=== PATIENT | male | born 1995 | race Caucasian/White ===

== ENCOUNTER 2017-05-23 15:29 | Inpatient (IN) | payer OTHER ==
[2017-05-23] MEDS ORDERED: KETOROLAC 30 MG/ML 1 ML VIAL IVP STA (15:48)
[2017-05-23] MEDS ORDERED: SODIUM CHLORIDE 0.9% 1,000 ML IV STA (15:48)
--- NOTE | 2017-05-23 15:59 | ED ---
General Adult HPI - General Source: patient, family, RN notes reviewed Mode of arrival: wheelchair Limitations: no limitations <Elver Villagomez - Last Filed: 05/23/17 19:05> <Genaro Carrasco - Last Filed: 05/23/17 19:42> - General Chief complaint: Extremity Injury, Lower Stated complaint: Ankle Pain /Swelling Time Seen by Provider: 05/23/17 15:40 - History of Present Illness Initial comments: Patient 21-year-old male significant past history for ulcer colitis, who presents emergency room today with chief complaint of bilateral lower leg pain and swelling. He does admit that over the last few days his noticed increased pain to his both right and left calf. He states that it did wake him up sleeping. Patient has mid that his noticed some swelling today worse on the left than the right. Patient also admits some redness on the left side. He denies any injuries or trauma. He states never had some symptoms in the past. Patient states is very tender with ambulation. States not used anything for pain. Denies any other complaints or symptoms. Patient denies any recent fever , chills, shortness of breath, chest pain, back pain, abdominal pain, nausea or vomiting, numbness or tingling, dysuria or hematuria, constipation or diarrhea, headaches or visual changes, or any other complaints. (Elver Villagomez) - Related Data Home Medications Medication Instructions Recorded Confirmed EPINEPHrine (Auto Inject) [Epipen] 0.3 mg IM ONCE PRN 05/23/17 05/23/17 Mesalamine [Canasa] 1,000 mg RECTAL HS 05/23/17 05/23/17 Mesalamine [Lialda] 2.4 gm PO QAM 05/23/17 05/23/17 Allergies Allergy/AdvReac Type Severity Reaction Status Date / Time Sulfa (Sulfonamide Allergy Anaphylaxis Verified 05/23/17 19:35 Antibiotics) venom-honey bee Allergy Anaphylaxis Verified 05/23/17 19:35 Review of Systems ROS Other: All systems not noted in ROS Statement are negative. <Elver Villagomez - Last Filed: 05/23/17 19:05> ROS Other: All systems not noted in ROS Statement are negative. <Genaro Carrasco - Last Filed: 05/23/17 19:42> ROS Statement: Those systems with pertinent positive or pertinent negative responses have been documented in the HPI. Past Medical History Additional Past Medical History / Comment(s): ulcertive colitis History of Any Multi-Drug Resistant Organisms: None Reported Past Surgical History: Ear Surgery Past Psychological History: No Psychological Hx Reported Smoking Status: Never smoker Past Alcohol Use History: None Reported Past Drug Use History: None Reported <Elver Villagomez - Last Filed: 05/23/17 19:05> General Exam Limitations: no limitations <Elver Villagomez - Last Filed: 05/23/17 19:05> <Genaro Carrasco - Last Filed: 05/23/17 19:42> - General Exam Comments Initial Comments: General: The patient is awake and alert, in no distress, and does not appear acutely ill. Neck: The neck is supple, there is no tenderness or JVD. Cardiovascular: There is a regular rate and rhythm. No murmur, rub or gallop is appreciated. Respiratory: Lungs are clear to auscultation, respirations are non-labored, breath sounds are equal. No wheezes, stridor, rales, or rhonchi. Musculoskeletal: moderate swelling to both the left and right ankles. He shows limited range of motion with plantar and dorsiflexion due to pain. Locally tender over the joints bilaterally. No tenderness down into the foot. No tenderness to left or right knee. Cap refill less than 2 seconds. Sensations are intact with pulses equal bilateral 2+. Neurological: A&O x 3. CN II-XII intact, There are no obvious motor or sensory deficits. Coordination appears grossly intact. Speech is normal. Skin: he does have some moderate swelling of the ankles bilaterally. There is increased redness to the lateral aspect of the left ankle and anterior aspect of the left foot. Psychiatric: Normal mood and affect. (Elver Villagomez) Course <Elver Villagomez - Last Filed: 05/23/17 19:05> <Genaro Carrasco - Last Filed: 05/23/17 19:42> Vital Signs 05/23/17 05/23/17 05/23/17 15:30 17:35 19:19 Temperature 97.8 F 100.0 F H 99.4 F Pulse Rate 118 H 99 89 Respiratory 16 18 18 Rate Blood Pressure 143/77 114/57 137/60 O2 Sat by Pulse 100 99 96 Oximetry - Reevaluation(s) Reevaluation #1: 05/23/17 19:41 I did personally evaluate the patient with a [id number] evaluation and did discuss findings with the patient and his parents. Also discuss case with Dr. Moffett. Patient will be admitted CT abdomen pelvis will be performed consultation by Dr. Lawrence. (Genaro Carrasco) Medical Decision Making - Lab Data Result diagrams: 05/23/17 16:09 05/23/17 16:09 <Elver Villagomez - Last Filed: 05/23/17 19:05> - Lab Data Result diagrams: 05/23/17 16:09 05/23/17 16:09 <Genaro Carrasco - Last Filed: 05/23/17 19:42> - Lab Data Lab Results 05/23/17 05/23/17 05/23/17 Range/Units 16:09 16:09 16:09 WBC 18.4 H (3.8-10.6) k/uL RBC 4.17 L (4.30-5.90) m/uL Hgb 13.7 (13.0-17.5) gm/dL Hct 38.7 L (39.0-53.0) % MCV 92.8 (80.0-100.0) fL MCH 32.8 (25.0-35.0) pg MCHC 35.3 (31.0-37.0) g/dL RDW 13.8 (11.5-15.5) % Plt Count 466 H (150-450) k/uL Neutrophils % 83 % Lymphocytes % 7 % Monocytes % 4 % Eosinophils % 4 % Basophils % 0 % Neutrophils # 15.3 H (1.3-7.7) k/uL Lymphocytes # 1.3 (1.0-4.8) k/uL Monocytes # 0.7 (0-1.0) k/uL Eosinophils # 0.8 H (0-0.7) k/uL Basophils # 0.1 (0-0.2) k/uL Poikilocytosis Slight ESR 45 H (0-15) mm/hr Sodium 133 L (137-145) mmol/L Potassium 4.1 (3.5-5.1) mmol/L Chloride 99 (98-107) mmol/L Carbon Dioxide 23 (22-30) mmol/L Anion Gap 11 mmol/L BUN 9 (9-20) mg/dL Creatinine 0.90 (0.66-1.25) mg/dL Est GFR (MDRD) Af Amer >60 (>60 ml/min/1.73 sqM) Est GFR (MDRD) Non-Af >60 (>60 ml/min/1.73 sqM) Glucose 84 (74-99) mg/dL Uric Acid 3.5 (3.5-8.5) mg/dL Calcium 8.8 (8.4-10.2) mg/dL Magnesium 1.9 (1.6-2.3) mg/dL Total Bilirubin 0.9 (0.2-1.3) mg/dL AST 26 (17-59) U/L ALT 38 (21-72) U/L Alkaline Phosphatase 105 (38-126) U/L C-Reactive Protein 88.8 H (<10.0) mg/L Total Protein 6.7 (6.3-8.2) g/dL Albumin 3.6 (3.5-5.0) g/dL Disposition Time of Disposition: 19:22 <Elver Villagomez - Last Filed: 05/23/17 19:05> <Genaro Carrasco - Last Filed: 05/23/17 19:42> Clinical Impression: Cellulitis Disposition: ADMITTED IP TO THIS HOSP Condition: Stable
[2017-05-23 16:30] LABS: Basophils # (A) 0.1 k/uL (0-0.2); Basophils % (A) 0 %; CH 32.9; CHCM 35.6; Eosinophils # (A) 0.8 k/uL (0-0.7); Eosinophils % (A) 4 %; HCT 38.7 % (39.0-53.0); HDW 3.51; HGB 13.7 gm/dL (13.0-17.5); Luc # (Auto) 0.28; Luc % (Auto) 2; Lymphocytes # (A) 1.3 k/uL (1.0-4.8); Lymphocytes % (A) 7 %; MCH 32.8 pg (25.0-35.0); MCHC 35.3 g/dL (31.0-37.0); MCV 92.8 fL (80.0-100.0); Mean Platelet Volume 6.2; Monocytes # (A) 0.7 k/uL (0-1.0); Monocytes % (A) 4 %; Neutrophils # (A) 15.3 k/uL (1.3-7.7); Neutrophils % (A) 83 %; Poikilocytosis Slight; RBC 4.17 m/uL (4.30-5.90); RDW 13.8 % (11.5-15.5); WBC 18.4 k/uL (3.8-10.6); WBC (Perox) 18.55
[2017-05-23 16:43] LABS: ALT 38 U/L (21-72); AST 26 U/L (17-59); Alkaline Phosphatase 105 U/L (38-126); Anion Gap 11 mmol/L; Blood Urea Nitrogen 9 mg/dL (9-20); C Reactive Protein 88.8 mg/L (<10.0); Calcium 8.8 mg/dL (8.4-10.2); Carbon Dioxide 23 mmol/L (22-30); Chloride 99 mmol/L (98-107); Glucose 84 mg/dL (74-99); Magnesium 1.9 mg/dL (1.6-2.3); Non-African American GFR(MDRD) >60 (>60 ml/min/1.73 sqM); Potassium 4.1 mmol/L (3.5-5.1); Sodium 133 mmol/L (137-145); Total Bilirubin 0.9 mg/dL (0.2-1.3); Total Protein 6.7 g/dL (6.3-8.2); Uric Acid 3.5 mg/dL (3.5-8.5)
--- NOTE | 2017-05-23 17:31 | US ---
EXAMINATION TYPE: US venous doppler duplex LE BI DATE OF EXAM: 05/23/2017 5:25 PM COMPARISON: NONE CLINICAL HISTORY: Pain. Bilateral feet swelling SIDE PERFORMED: Bilateral TECHNIQUE: The lower extremity deep venous system is examined utilizing real time linear array sonog hilda with graded compression, doppler sonography and color-flow sonography. VESSELS IMAGED: External Iliac Vein (EIV) Common Femoral Vein Deep Femoral Vein Greater Saphenous Vein * Femoral Vein Popliteal Vein Small Saphenous Vein * Proximal Calf Veins (* superficial vessels) Right Leg: Appears negative for DVT Left Leg: Appears negative for DVT Grayscale, color doppler, spectral doppler imaging performed of the deep veins of the lower extremiti es. There is normal flow, compressibility, vascular waveforms IMPRESSION: No evidence of acute DVT in either lower extremity.
[2017-05-23] MEDS ORDERED: ACETAMINOPHEN IV (For NPO) 1,000 MG in SALINE 100 100ML.BAG IVPB STA (17:46)
[2017-05-23] MEDS ORDERED: PIPERACILLIN-TAZOBACTAM 3.375 GM in DEXTROSE/WATER 1 50ML.BAG IVPB STA (17:52)
[2017-05-23] MEDS ORDERED: NALOXONE 0.4 MG/ML 1 ML VIAL IV PRN (19:19)
[2017-05-23] MEDS ORDERED: HYDROmorphone 1 MG/ML 1 ML SYRINGE IV PRN (19:19)
[2017-05-23] MEDS ORDERED: RX INFO: IV CONTRAST WAS GIVEN 1 EACH MISC MISCELLANE PRN (19:19)
[2017-05-23] MEDS: IOHEXOL 350 MG/ML 25 ML BOTTLE (ORAL USE) PO PRN ×2 (19:58→21:11)
--- NOTE | 2017-05-23 22:09 | CT ---
EXAMINATION TYPE: CT abdomen pelvis w con DATE OF EXAM: 05/23/2017 COMPARISON: NONE HISTORY: patient complains of bilateral lower leg swelling. Patient has history of ulcerative coliti s. CT DLP: 388.1 mGycm, Automated Exposure Control for Dose Reduction was Utilized. CONTRAST: CT scan of the abdomen and pelvis is performed with oral and with IV Contrast, patient injected with 100 mL of Omnipaque 300. FINDINGS: LUNG BASES: No significant abnormality is appreciated. LIVER/GB: No significant abnormality is appreciated. PANCREAS: No significant abnormality is seen. SPLEEN: No significant abnormality is seen. ADRENALS: No significant abnormality is seen. KIDNEYS: No significant abnormality is seen. BOWEL: Oral contrast reaches level of the mid transverse colon making evaluation of distal bowel slig htly suboptimal. Patient also has very little intra-abdominal fat making evaluation suboptimal. There is air-fluid level in rectum. There is mild to moderate wall thickening in the left colon with perha ps mild wall thickening in the sigmoid colon. PROSTATE/SEMINAL VESICLES: No gross abnormality seen. LYMPH NODES: No greater than 1cm abdominal or pelvic lymph nodes are appreciated. OSSEOUS STRUCTURES: No significant abnormality is seen. OTHER: No significant additional abnormality is seen. IMPRESSION: Suspect left-sided acute colitis as detailed above, differential includes infectious and inflammatory etiologies including active ulcerative colitis. Clinical correlation advised.
[2017-05-23] MEDS: ACETAMINOPHEN TAB 325 MG TAB PO PRN (22:49)
[2017-05-23] MEDS: PIPERACILLIN-TAZOBACTAM 3.375 GM in DEXTROSE/WATER 1 50ML.BAG IVPB SCH (22:50)
[2017-05-24 02:51] LABS: Appearance,Urine Clear (Clear); Bilirubin,Urine Negative (Negative); Glucose,Urine (UA) Negative (Negative); Ketones,Urine 1+ (Negative); Leukocyte Esterase,Urine Negative (Negative); Nitrite,Urine Negative (Negative); PH, Urine 6.5 (5.0-8.0); Protein,Urine Trace (Negative); Specific Gravity,Urine 1.021 (1.001-1.035); UA Billing (MACRO vs. MICRO) CHEM; Urobilinogen,Urine <2.0 mg/dL (<2.0)
[2017-05-24] MEDS: ACETAMINOPHEN TAB 325 MG TAB PO PRN ×4 (03:51→21:53)
[2017-05-24] MEDS: KETOROLAC 30 MG/ML 1 ML VIAL IVP PRN ×4 (03:56→21:52)
[2017-05-24 07:32] LABS: ALT 46 U/L (21-72); AST 29 U/L (17-59); Alkaline Phosphatase 101 U/L (38-126); Anion Gap 10 mmol/L; Blood Urea Nitrogen 10 mg/dL (9-20); Calcium 8.8 mg/dL (8.4-10.2); Carbon Dioxide 27 mmol/L (22-30); Chloride 98 mmol/L (98-107); Glucose 93 mg/dL (74-99); Non-African American GFR(MDRD) >60 (>60 ml/min/1.73 sqM); Potassium 4.8 mmol/L (3.5-5.1); Sodium 135 mmol/L (137-145); Total Bilirubin 0.7 mg/dL (0.2-1.3); Total Protein 6.5 g/dL (6.3-8.2)
[2017-05-24 07:34] LABS: Basophils # (A) 0.1 k/uL (0-0.2); Basophils % (A) 0 %; CH 32.4; CHCM 34.5; Eosinophils # (A) 0.7 k/uL (0-0.7); Eosinophils % (A) 5 %; HCT 35.6 % (39.0-53.0); HDW 3.44; HGB 12.3 gm/dL (13.0-17.5); Luc # (Auto) 0.15; Luc % (Auto) 1; Lymphocytes # (A) 0.7 k/uL (1.0-4.8); Lymphocytes % (A) 5 %; MCH 32.7 pg (25.0-35.0); MCHC 34.7 g/dL (31.0-37.0); MCV 94.3 fL (80.0-100.0); Mean Platelet Volume 6.5; Monocytes # (A) 0.4 k/uL (0-1.0); Monocytes % (A) 3 %; Neutrophils # (A) 12.7 k/uL (1.3-7.7); Neutrophils % (A) 86 %; Poikilocytosis Slight; RBC 3.77 m/uL (4.30-5.90); RDW 13.7 % (11.5-15.5); WBC 14.8 k/uL (3.8-10.6); WBC (Perox) 13.73
[2017-05-24] MEDS: PIPERACILLIN-TAZOBACTAM 3.375 GM in DEXTROSE/WATER 1 50ML.BAG IVPB SCH ×2 (08:39→16:53)
[2017-05-24] MEDS: ONDANSETRON 4 MG/2 ML VIAL IVP PRN (10:32)
[2017-05-24 12:32] VITALS: BMI 23.6
--- NOTE | 2017-05-24 14:15 | P.HPIM ---
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 Patient denies trauma or any injury. He noticed that the swelling is worse on the left than the right. Patient states since starting IV antibiotics the symptoms in terms of the tenderness and the swelling have resolved significantly over last evening and yesterday. Patient has not been taking any pain meds denies other symptoms mom states he has felt warm he denies chills denies shortness of breath denies chest pain denies back pain denies new abdominal pain he states he has some abdominal pain off and on most of the time from the ulcerative colitis. Review of Systems Constitutional: Reports malaise Ears, nose, mouth and throat: Reports as per HPI Cardiovascular: Reports as per HPI Respiratory: Reports as per HPI Gastrointestinal: Reports diarrhea, Reports loss of appetite Genitourinary: Reports as per HPI Musculoskeletal: Reports as per HPI Integumentary: Reports as per HPI Neurological: Reports as per HPI Psychiatric: Reports as per HPI Endocrine: Reports as per HPI Hematologic/Lymphatic: Reports as per HPI Allergic/Immunologic: Reports as per HPI Past Medical History Past Medical History: Asthma Additional Past Medical History / Comment(s): ulcertive colitis History of Any Multi-Drug Resistant Organisms: None Reported Past Surgical History: Ear Surgery Additional Past Surgical History / Comment(s): colonoscopy x2 Past Anesthesia/Blood Transfusion Reactions: No Reported Reaction Past Psychological History: No Psychological Hx Reported Smoking Status: Never smoker Past Alcohol Use History: None Reported Past Drug Use History: None Reported Medications and Allergies Home Medications Medication Instructions Recorded Confirmed Type EPINEPHrine (Auto Inject) [Epipen] 0.3 mg IM ONCE PRN 05/23/17 05/23/17 History Mesalamine [Canasa] 1,000 mg RECTAL HS 05/23/17 05/23/17 History Mesalamine [Lialda] 2.4 gm PO QAM 05/23/17 05/23/17 History Allergies Allergy/AdvReac Type Severity Reaction Status Date / Time peanut Allergy Anaphylaxis Verified 05/24/17 03:08 Sulfa (Sulfonamide Allergy Anaphylaxis Verified 05/23/17 19:35 Antibiotics) venom-honey bee Allergy Anaphylaxis Verified 05/23/17 19:35 Physical Exam Osteopathic Statement: *. No significant issues noted on an osteopathic structural exam other than those noted in the History and Physical/Consult. Vitals: Vital Signs Temp Pulse Pulse Pulse Resp BP BP 05/24/17 07:00 97.8 F 76 16 05/24/17 01:12 98.0 F 84 16 05/23/17 19:34 97.1 F L 84 16 112/59 05/23/17 19:19 99.4 F 89 18 137/60 05/23/17 17:35 100.0 F H 99 18 114/57 05/23/17 15:30 97.8 F 118 H 16 143/77 BP Pulse Ox 05/24/17 07:00 117/57 98 05/24/17 01:12 118/73 96 05/23/17 19:34 97 05/23/17 19:19 96 05/23/17 17:35 99 05/23/17 15:30 100 Intake and Output 05/23/17 05/24/17 05/24/17 22:59 06:59 14:59 Intake Total 550 600 200 Output Total 600 Balance -50 600 200 Intake: Intake, IV Titration 100 Amount Piperacillin-Tazobactam 3 100 .375 gm In Dextrose/Water 1 50ml.bag @ 12.5 mls/hr IVPB Q8HR [facility] Rx#: [id number] Oral 550 500 200 Output: Urine 600 Other: Voiding Method Toilet # Voids 1 # Bowel Movements 1 Weight 72.575 kg 72.575 kg Patient Weight 05/25/17 06:59 Weight 72.575 kg General: [Patient awake, alert and oriented times 3. Patient in no acute distress.] HEENT: [PERRL. EOMI. No pharyngeal erythema or exudate.] Neck: [No adenopathy.] Cardiac: [Heart regular in rate and rhythm. No S3. No S4. No clicks, rubs. No murmur.] Lungs: [Clear to auscultation bilaterally.] Abdomen: [No mass. No organomegaly. Bowel sounds presnt and normoactive in all 4 quadrants.] Extremes: [Bilateral 2+ edema with erythema no cyanosis no claudication normal pulses] : [] Musculoskeletal: [No joint erythema, edema or tenderness.] Skin: [No rash.] Neurologic: [No lateralizing deficits. CN II - XII grossly intact.] Lymphatic: [No adenopathy.] Results CBC & Chem 7: 05/24/17 06:40 05/24/17 06:40 Labs: Abnormal Lab Results - Last 24 Hours (Table) 05/23/17 05/23/17 05/23/17 Range/Units 16:09 16:09 16:09 WBC 18.4 H (3.8-10.6) k/uL RBC 4.17 L (4.30-5.90) m/uL Hgb (13.0-17.5) gm/dL Hct 38.7 L (39.0-53.0) % Plt Count 466 H (150-450) k/uL Neutrophils # 15.3 H (1.3-7.7) k/uL Lymphocytes # (1.0-4.8) k/uL Eosinophils # 0.8 H (0-0.7) k/uL ESR 45 H (0-15) mm/hr Sodium 133 L (137-145) mmol/L C-Reactive Protein 88.8 H (<10.0) mg/L Albumin (3.5-5.0) g/dL Urine Protein (Negative) Urine Ketones (Negative) 05/24/17 05/24/17 05/24/17 Range/Units 02:00 06:40 06:40 WBC 14.8 H (3.8-10.6) k/uL RBC 3.77 L (4.30-5.90) m/uL Hgb 12.3 L (13.0-17.5) gm/dL Hct 35.6 L (39.0-53.0) % Plt Count (150-450) k/uL Neutrophils # 12.7 H (1.3-7.7) k/uL Lymphocytes # 0.7 L (1.0-4.8) k/uL Eosinophils # (0-0.7) k/uL ESR (0-15) mm/hr Sodium 135 L (137-145) mmol/L C-Reactive Protein (<10.0) mg/L Albumin 3.4 L (3.5-5.0) g/dL Urine Protein Trace H (Negative) Urine Ketones 1+ H (Negative) Thrombosis Risk Factor Assmnt - DVT/VTE Prophylaxis DVT/VTE Prophylaxis: Low risk, early ambulation encouraged - Choose All That Apply Any of the Below Risk Factors Present?: No Other Risk Factors: No Other congenital or acquired thrombophilia - If yes, enter type in comment: No Thrombosis Risk Factor Assessment Level: Very Low Risk Assessment and Plan (1) Ulcerative colitis, chronic Status: Acute (2) Cellulitis of both lower extremities Status: Acute Plan: Patient has known ulcerative colitis for approximately the last year, states he' s taking meds which have not been effective Patient was admitted with bilateral lower extreme cellulitis started on IV antibiotic therapy Also has a flare of ulcerative colitis with bloody stool loose watery stool 4-5 times per day Alcohol hold current meds therapy for UC Blood cultures performed in emergency room Consult infectious disease Consult GI Dr. Donovna Patient does have appointment with Dr. Miguel Boyd MD on Thursday for reevaluation for ulcerative colitis Time with Patient: Greater than 30
[2017-05-24] MEDS: DEXTROSE 5%-0.45% NACL 1,000 ML IV SCH (17:01)
[2017-05-25] MEDS: ONDANSETRON 4 MG/2 ML VIAL IVP PRN ×2 (00:09→08:12)
[2017-05-25] MEDS: DEXTROSE 5%-0.45% NACL 1,000 ML IV SCH ×4 (00:09→23:55)
[2017-05-25] MEDS: PIPERACILLIN-TAZOBACTAM 3.375 GM in DEXTROSE/WATER 1 50ML.BAG IVPB SCH ×3 (00:09→15:34)
[2017-05-25] MEDS: ACETAMINOPHEN TAB 325 MG TAB PO PRN ×4 (03:40→23:53)
[2017-05-25] MEDS: KETOROLAC 30 MG/ML 1 ML VIAL IVP PRN ×4 (03:40→23:54)
[2017-05-25 07:11] LABS: Basophils # (A) 0.1 k/uL (0-0.2); Basophils % (A) 0 %; CH 32.3; CHCM 33.9; Eosinophils # (A) 0.5 k/uL (0-0.7); Eosinophils % (A) 3 %; HCT 32.4 % (39.0-53.0); HDW 3.47; HGB 11.1 gm/dL (13.0-17.5); Luc # (Auto) 0.21; Luc % (Auto) 1; Lymphocytes # (A) 0.6 k/uL (1.0-4.8); Lymphocytes % (A) 4 %; MCH 32.8 pg (25.0-35.0); MCHC 34.2 g/dL (31.0-37.0); MCV 95.8 fL (80.0-100.0); Mean Platelet Volume 6.5; Monocytes # (A) 0.5 k/uL (0-1.0); Monocytes % (A) 3 %; Neutrophils # (A) 12.6 k/uL (1.3-7.7); Neutrophils % (A) 88 %; Poikilocytosis Slight; RBC 3.38 m/uL (4.30-5.90); RDW 13.5 % (11.5-15.5); WBC 14.4 k/uL (3.8-10.6); WBC (Perox) 15.33
[2017-05-25 07:32] LABS: Anion Gap 8 mmol/L; Blood Urea Nitrogen 11 mg/dL (9-20); Carbon Dioxide 24 mmol/L (22-30); Chloride 103 mmol/L (98-107); Glucose 112 mg/dL (74-99); Non-African American GFR(MDRD) >60 (>60 ml/min/1.73 sqM); Potassium 4.1 mmol/L (3.5-5.1); Sodium 135 mmol/L (137-145)
[2017-05-25] MEDS: methylPREDNISolone SOD SUCCI 125 MG/2 ML VIAL IV SCH ×4 (09:14→23:56)
--- NOTE | 2017-05-25 13:01 | CONS ---
CONSULTATION DATE OF SERVICE: 05/24/2017. REASON FOR CONSULTATION: Lower extremity cellulitis. HISTORY OF PRESENT ILLNESS: The patient is a 21-year-old, male, with past medical history significant for ulcerative colitis. 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 The patient presenting to the ER at [facility] with chief complaints of bilateral lower extremity pain and swelling. The pain and swelling had been mostly in the calf area and left more than right. The patient main symptoms remains to be pain which has been dull aching pain almost 6 to 7 out of 10 and no radiation. Some associated swelling with it and redness and mostly marked in the ankle area. The patient has been complaining of more pain especially when he walks on it. The patient was so painful to the point he was unable to walk and hence he presented to the [facility] ER. The patient was evaluated by the ER physician. He did have lower extremity Dopplers that were negative for DVT. The patient does have a fever of 101, while down in the ER and white count elevated to 10,000. The patient also had a CT abdominal and pelvis which did show evidence of left-sided colitis. The patient did mention that recently his ulcerative colitis has gotten worse with more pain in the abdominal area, colicky, 5 to 6 out of 10 and no radiation with more bloody stools but no nausea, no vomiting. The patient has been admitted hospital and has been started on p.o. Piptazobactam. Infectious disease was consulted for further recommendation for antibiotic therapy. REVIEW OF SYSTEMS: Constitutional positive for weakness and low-grade fever. Eyes no complaint. ENT no complaint. Respiratory no complaint. Cardiovascular no complaint. Genitourinary no complaint. Gastrointestinal: As per HPI. Integumentary: As per HPI. Musculoskeletal as per HPI. Psychological: No complaint. Endocrine: No complaint. Neurological No complaint. PAST MEDICAL HISTORY: Asthma and ulcerative colitis. PAST SURGICAL HISTORY: Colonoscopy times two. SOCIAL HISTORY: No history of smoking, drinking, drug use. FAMILY HISTORY: No pertinent findings noticed. ALLERGIES: SULFA. MEDICATION: Include the patient is currently on: 1. Piptazobactam. 2. Zofran. 3. Narcan. 4. Toradol. 5. Dilaudid. 6. Tylenol. EXAMINATION: Blood pressure is 124/56 with a pulse of 72, temperature 96.1, he is 96% on room air. General description is a young male male, lying in bed, in no distress. No tachypnea or accessory muscles of respiration use. HEENT: Shows no pallor or scleral icterus. Oral mucosa membranes dry. Neck trachea central. No thyromegaly. Lungs unlabored breathing. Clear to auscultation anteriorly. No wheeze or crackle. Heart is S1, S2. Regular rate and rhythm. Abdomen: Soft. Minimally tender. No guarding. No rigidity. Lower extremity very minimal swelling. I did not appreciate any redness. No warmth to the legs. Swelling has been marked mostly in ankle area. No evidence of athlete's foot . Neurological patient is awake, alert, oriented x3. Mood and affect normal. LABS: Hemoglobin is 12.8, white count 14.8, admission white count was 13.4 with a BUN of 10 and creatinine is 1.12. DIAGNOSTIC IMPRESSION AND PLAN: Patient admitted to the hospital with bilateral cough, pain, tenderness and swelling and questionable redness. The patient did have lower extremity Dopplers that have been negative. The swelling has been mostly marked to the ankle area with a question of inflammatory arthritis related to his underlying ulcerative colitis to the likely etiology. Clinically doubt septic arthritis, and I did not appreciate any erythema on today's examination. It would be very unusual for the redness associated with cellulitis to disappear that quickly with less than 24 hours of antibiotic therapy. He did have a low-grade fever and elevated white count with evidence of colitis on the CT scan and underlying acute exacerbation of ulcerative colitis with likely etiology of the fever and elevated white count rather than the cellulitis. PLAN: 1. We will obtain a stool culture, and stool for C diff. 2. The patient will continue with the Zosyn, may benefit from steroids and continue IV fluids. 3. Await Gastroenterology evaluation. 4. We will follow up on his clinical condition and further adjust medication as needed. Parents present at the bedside. Their questions were answered. Thank you for this consultation. MMODL / IJN: [id number] /
--- NOTE | 2017-05-25 14:15 | P.PN ---
Subjective Principal diagnosis: Postoperative colitis flare with bilateral lower extreme swelling and cellulitis Patient is 21-year-old male recently returned to our practice with a history significant for ulcerative colitis. Patient had lower extreme pain and swelling patient mostly in the calf area left more than the right. No evidence for DVT on ultrasound bilateral lower extremes. Elevated temp of 101 when done in the ER elevated white count as high as 14,000 CT of the abdomen and pelvis shows evidence of left-sided colitis. Patient had mild abdominal discomfort with bloody stools but no nausea no vomiting. Patient was started on PIP tazobactam, and is awaiting culture report Objective - Vital Signs Vital signs: Vital Signs Temp 97.8 F 05/25/17 07:00 Pulse 84 05/25/17 08:00 Resp 16 05/25/17 08:00 BP 104/66 05/25/17 07:00 Pulse Ox 96 05/25/17 07:00 Intake & Output 05/24/17 05/25/17 05/25/17 18:59 06:59 18:59 Intake Total 250 2011.5 800 Balance 250 2011.5 800 Weight 72.575 kg Intake: IV 800 Dextrose 5%-0.45% NaCl 1, 800 000 ml @ 125 mls/hr IV . Q8H [facility] Rx#:[id number] Intake, IV Titration 50 1162.5 Amount Dextrose 5%-0.45% NaCl 1, 1062.5 000 ml @ 125 mls/hr IV . Q8H [facility] Rx#:[id number] Piperacillin-Tazobactam 3 50 100 .375 gm In Dextrose/Water 1 50ml.bag @ 12.5 mls/hr IVPB Q8HR [facility] Rx#: [id number] Oral 200 850 Other: Voiding Method Toilet Toilet # Voids 2 # Bowel Movements 3 - Exam General: [Patient awake, alert and oriented times 3. Patient in no acute distress.] HEENT: [PERRL. EOMI. No pharyngeal erythema or exudate.] Neck: [No adenopathy.] Cardiac: [Heart regular in rate and rhythm. No S3. No S4. No clicks, rubs. No murmur.] Lungs: [Clear to auscultation bilaterally.] Abdomen: [No mass. No organomegaly. Bowel sounds presnt and normoactive in all 4 quadrants.] Extremes: Bilateral lower extreme edema is all but resolved at this time no cyanosis no claudication normal pulses] : [] Musculoskeletal: [No joint erythema, edema or tenderness.] Skin: [No rash.] Neurologic: [No lateralizing deficits. CN II - XII grossly intact.] Lymphatic: [No adenopathy.] - Labs CBC & Chem 7: 05/25/17 06:52 05/25/17 06:52 Labs: Abnormal Lab Results - Last 24 Hours (Table) 05/25/17 05/25/17 Range/Units 06:52 06:52 WBC 14.4 H (3.8-10.6) k/uL RBC 3.38 L (4.30-5.90) m/uL Hgb 11.1 L (13.0-17.5) gm/dL Hct 32.4 L (39.0-53.0) % Neutrophils # 12.6 H (1.3-7.7) k/uL Lymphocytes # 0.6 L (1.0-4.8) k/uL Sodium 135 L (137-145) mmol/L Glucose 112 H (74-99) mg/dL Calcium 8.0 L (8.4-10.2) mg/dL Microbiology - Last 24 Hours (Table) 05/24/17 03:25 Stool Culture - Preliminary Stool 05/23/17 19:11 Blood Culture - Preliminary Blood No Growth after 24 hours Assessment and Plan (1) Ulcerative colitis, chronic Status: Acute (2) Cellulitis of both lower extremities Status: Acute Plan: Patient has known ulcerative colitis for approximately the last year, states he' s taking meds which have not been effective Patient was admitted with bilateral lower extreme cellulitis started on IV antibiotic therapy Also has a flare of ulcerative colitis with bloody stool loose watery stool 4-5 times per day Alcohol hold current meds therapy for UC Blood cultures performed in emergency room Consult infectious disease has decided to continue current antibiotic regimen Dr. Andrew has seen patient and has started patient on IV Solu-Medrol Patient does have appointment with Dr. Miguel Boyd MD on Thursday for reevaluation for ulcerative colitis Time with Patient: Greater than 30
--- NOTE | 2017-05-25 15:46 | CONS ---
CONSULTATION DATE OF SERVICE: 05/25/2017 REQUESTING PHYSICIAN: Dr. Moffett. REASON FOR CONSULTATION: Exacerbation of ulcerative colitis. HISTORY OF PRESENT ILLNESS: The patient is a 21-year-old pleasant white male who was diagnosed with left-sided ulcerative colitis by Dr. Mahmood at [facility] approximately 2-1/2 years ago. The patient, at the time of diagnosis, was treated with steroids and subsequently was started on 6-mercaptopurine in the summer of 2014. He did reasonably well until the early part of this year and started having flare-up with frequent bowel movements and bloody diarrhea. He was given a trial of Rowasa enemas and recently was given a trial of Cortenema and continued to remain symptomatic. For some reason, the 6-mercaptopurine has been discontinued about a month ago. The possibility of biologic agent was being discussed with the patient. In the meantime, for the last 2 weeks, he started having worsening diarrhea with bowel movements, anywhere from 10 to 15 per day, which were loose to watery in consistency with blood and mucus in the stool and also he developed bilateral ankle swelling to a point that he was not able to ambulate well and hence came into the emergency room and subsequently admitted to the hospital for further evaluation. He does complain of left lower quadrant abdominal pain. He reports no nausea or vomiting. Denies any fever chills or night sweats. He denies any recent antibiotic use. PAST MEDICAL HISTORY: Left-sided ulcerative colitis diagnosed in 2014. PAST SURGICAL HISTORY: Ear surgery. MEDICATIONS: 1. 4 tablets a day. 2. Epi-pen. 3. Canasa suppositories. ALLERGIES: SULFA. SOCIAL HISTORY: No smoking or alcohol use. FAMILY HISTORY: Unremarkable. REVIEW OF SYSTEMS: CARDIOPULMONARY: No chest pain or shortness of breath. GENITOURINARY: No dysuria or hematuria. MUSCULOSKELETAL: Unremarkable. SKIN: Unremarkable. ENDOCRINE: Unremarkable. PSYCHIATRIC: Unremarkable. NEUROLOGIC: Unremarkable. ENT/VISION: Unremarkable. CONSTITUTIONAL: No recent weight loss. No fevers, chills or night sweats. PHYSICAL EXAMINATION: GENERAL: He appears comfortable. No apparent distress. VITAL SIGNS: Stable. Blood pressure is 110/59, pulse 84, temperature 98. HEENT: Conjunctivae pink. Sclerae anicteric. Oral cavity no lesions. NECK: No lymph node enlargement. CHEST: Clear to auscultation. HEART: Regular rate and rhythm. ABDOMEN: Soft. Bowel sounds are positive. No organomegaly. EXTREMITIES: Swelling of bilateral ankle swelling, significant swelling with some fluid noted in the joints. SKIN: No rashes. NEUROLOGIC: Alert and oriented x3. No focal deficits. LABORATORY DATA: WBC count 14.4, hemoglobin 11.1, platelets are normal. Basic metabolic panel is normal. C diff toxin negative. Stool for occult blood is positive. IMPRESSION: 1. Exacerbation of ulcerative colitis. The patient was originally diagnosed with left- sided colitis by Dr. Mahmood at [facility] 2-09/22 years ago, maintained on 6- mercaptopurine 100 mg daily for 2 years which was discontinued about a month ago. The patient has been having a flare up for the last 3 to 4 months and has been on topical mesalamine enemas as well as topical steroid but still remains symptomatic. Now has 10 to 15 bowel movements with blood and mucus in the stool for the last 2 weeks. 2. Bilateral ankle swelling, possibly related to severe arthritis from ulcerative colitis. Of course, other rheumatological conditions cannot be excluded. RECOMMENDATIONS: 1. We will start the patient on IV steroids with Solu-Medrol 60 mg every 6 hours. 2. Continue on 4 tablets daily. 3. Obtain sedimentation rate and C-reactive protein as well as CBC tomorrow. 4. Patient already has an appointment to see another GI specialist in [facility] area at the end of this week. Thank you for this consultation. We will follow the patient closely during his hospital stay. MMODL / IJN: [id number] /
[2017-05-26] MEDS: PIPERACILLIN-TAZOBACTAM 3.375 GM in DEXTROSE/WATER 1 50ML.BAG IVPB SCH ×3 (00:08→15:57)
[2017-05-26] MEDS: DEXTROSE 5%-0.45% NACL 1,000 ML IV SCH ×2 (06:17→12:24)
[2017-05-26] MEDS: methylPREDNISolone SOD SUCCI 125 MG/2 ML VIAL IV SCH (06:17)
[2017-05-26] MEDS: KETOROLAC 30 MG/ML 1 ML VIAL IVP PRN (06:25)
[2017-05-26] MEDS: ACETAMINOPHEN TAB 325 MG TAB PO PRN ×2 (06:25→12:34)
[2017-05-26 07:21] LABS: Basophils % (A) 0 %; CH 33.4; CHCM 34.5; Eosinophils % (A) 0 %; HDW 3.48; HGB 10.2 gm/dL (13.0-17.5); Luc # (Auto) 0.07; Luc % (Auto) 1; Lymphocytes # (A) 0.5 k/uL (1.0-4.8); Lymphocytes % (A) 3 %; MCHC 32.9 g/dL (31.0-37.0); MCV 97.3 fL (80.0-100.0); Mean Platelet Volume 6.9; Monocytes # (A) 0.2 k/uL (0-1.0); Monocytes % (A) 1 %; Neutrophils # (A) 14.7 k/uL (1.3-7.7); Neutrophils % (A) 95 %; Poikilocytosis Slight; RBC 3.19 m/uL (4.30-5.90); RDW 14.2 % (11.5-15.5); WBC 15.5 k/uL (3.8-10.6); WBC (Perox) 15.71
[2017-05-26 07:36] LABS: Anion Gap 8 mmol/L; Blood Urea Nitrogen 8 mg/dL (9-20); Calcium 8.6 mg/dL (8.4-10.2); Carbon Dioxide 23 mmol/L (22-30); Chloride 107 mmol/L (98-107); Glucose 146 mg/dL (74-99); Non-African American GFR(MDRD) >60 (>60 ml/min/1.73 sqM); Potassium 4.1 mmol/L (3.5-5.1); Sodium 138 mmol/L (137-145)
[2017-05-26 08:06] VITALS: RESP 16
[2017-05-26] MEDS ORDERED: FAMOTIDINE 20 MG TAB PO SCH (09:00)
--- NOTE | 2017-05-26 09:31 | P.PN ---
Subjective Principal diagnosis: Exacerbation of ulcerative colitis 21-year-old male with a history of ulcerative colitis followed by Dr. Dorsey [facility] with exacerbation. Diarrhea improved. Bilateral ankle swelling improved. Abdominal pain improved. Left-sided abdominal pain slightly improved. No fever or chills. Hemoglobin 10.2. Clostridium difficile negative. Objective - Vital Signs Vital signs: Vital Signs Temp 97.5 F L 05/26/17 07:00 Pulse 77 05/26/17 07:00 Resp 16 05/26/17 07:00 BP 103/58 05/26/17 07:00 Pulse Ox 95 05/26/17 07:00 Intake & Output 05/25/17 05/26/17 05/26/17 18:59 06:59 18:59 Intake Total 800 2750 Output Total 600 Balance 200 2750 Weight 72.575 kg Intake: IV 800 2000 Dextrose 5%-0.45% NaCl 1, 800 2000 000 ml @ 125 mls/hr IV . Q8H BUTCH Rx#:[id number] Oral 750 Output: Urine 600 Other: Voiding Method Toilet # Voids 2 3 # Bowel Movements 1 - Exam General appearance: The patient is alert, oriented, in no acute distress. HET: Head is normocephalic and atraumatic. Pupils are equal and reactive. Oropharynx is clear without lesions. Neck: Supple without lymphadenopathy. Trachea midline. Heart: S1 S2. Regular rate and rhythm. Lungs: No crackles or wheezes are heard. Abdomen: Soft, mild left lower quadrant tenderness, nondistended with bowel sounds. No peritoneal signs. No palpable organomegaly or masses. Extremities: Very mild bilateral ankle swelling Normal skin color and turgor. No cyanosis, rash, ulceration, clubbing, or edema. Radial and pedal pulses are 2/4 bilaterally. Neurological: No focal deficits. Strength and sensation are grossly intact. - Labs CBC & Chem 7: 05/26/17 06:48 05/26/17 06:48 Labs: Abnormal Lab Results - Last 24 Hours (Table) 05/26/17 05/26/17 Range/Units 06:48 06:48 WBC 15.5 H (3.8-10.6) k/uL RBC 3.19 L (4.30-5.90) m/uL Hgb 10.2 L (13.0-17.5) gm/dL Hct 31.0 L (39.0-53.0) % Neutrophils # 14.7 H (1.3-7.7) k/uL Lymphocytes # 0.5 L (1.0-4.8) k/uL BUN 8 L (9-20) mg/dL Glucose 146 H (74-99) mg/dL Microbiology - Last 24 Hours (Table) 05/23/17 19:11 Blood Culture - Preliminary Blood No Growth after 48 hours 05/24/17 03:25 Stool Culture - Preliminary Stool Assessment and Plan (1) Ulcerative colitis, chronic Status: Acute Plan: 1. Decrease IV steroids Solu-Medrol 60 mg every 12 hours. Prednisone taper provided. Patient is requesting discharge today to attend college tomorrow. We 'll defer to medicine for discharge planning. Agreeable for discharge later today. Follow-up with pasteurizer helper as previously advised. Assessment and plan a care discussed with Dr. Andrew
[2017-05-26 10:14] LABS: Erythrocyte Sedimentation Rate 83 mm/hr (0-15)
--- NOTE | 2017-05-26 10:17 | PN ---
PROGRESS NOTE DATE OF SERVICE: 05/25/2017 REASON FOR FOLLOWUP: Acute exacerbation of the ulcerative colitis and a question of possible cellulitis to the legs. INTERVAL HISTORY: The patient is afebrile. Has been started on steroids by GI. The patient did show overall improvement as far as his abdominal pain is concerned and pain and swelling of the leg area has improved He is able to walk without any significant pain. PHYSICAL EXAMINATION: Blood pressure is 120/50 with a pulse of 78, temperature is 97.9, he is 98% on room air. General description is a young male, lying in bed, in no distress. RESPIRATORY SYSTEM: Unlabored breathing. Clear to auscultation anteriorly. HEART: S1, S2. Regular rate and rhythm. ABDOMEN: Soft, no tenderness. Bilateral legs with no swelling, no redness. LAB: Hemoglobin is 11.1, white count of 14.4 with a BUN of 11, creatinine is 1.11. DIAGNOSTIC IMPRESSION AND PLAN: Patient admitted to the hospital with pain in the legs with some redness and the patient has underlying ulcerative colitis with overall abdominal pain and bleeding per rectum like ulcerative colitis in a patient with a question of inflammatory arthritis to the bilateral heel area with very minimal cellulitis. Patient seems to be responding to the steroids started by the GI that will be continued and continue the Zosyn. MMODL / IJN: [id number] /
--- NOTE | 2017-05-26 11:57 | P.DS ---
Providers Date of admission: 05/23/17 19:13 Expected date of discharge: 05/26/17 Attending physician: Marcell Moffett Consults: 05/23/17 19:19 Consult Physician Stat Consulting Provider: Saqib Lawrence Consult Reason/Comments: cellulitis Do you want consulting provider notified?: Yes 05/24/17 12:36 Consult Physician Routine Consulting Provider: Anna Andrew Consult Reason/Comments: Colitis Do you want consulting provider notified?: Yes Primary care physician: [facility] Course: This is a 21-year-old male who presented to the emergency room on 10/2016 for bilateral lower extremity pain and swelling and was admitted with a diagnosis of cellulitis. The patient has a history of ulcerative colitis and usually sees Dr. Dorsey, from [facility], on an outpatient basis. A CAT scan of the abdomen was performed which was suspicious for left-sided acute colitis. A Doppler was performed of the lower extremities which was negative for DVT. Consults were placed to infectious disease and GI. The patient's white blood cell count was elevated in the ER and he also presented with a fever. He complained of abdominal pain and also noted to have bloody stools. Blood cultures were obtained which are negative at the 48 hour alanna. A stool sample was collected which was positive for occult blood. The patient was started on IV Zosyn. Additionally the patient received IV hydration and also IV steroids. The patient was seen and examined this morning and arouse with Dr. Zaman. The patient's legs have significantly decreased in size and there is no redness or swelling evident. The patient states he is tolerating a regular diet without nausea or vomiting. The patient states he continues to have some loose stools but they has to have significantly decreased and he has not noted blood in his stool today. He denies shortness of breath or chest pain. His vital signs have been stable. His white count remains elevated, which is likely due to his steroids, as his blood cultures are negative at the 48 hour alanna. The patient was cleared to be discharged today from a GI standpoint and the patient is to continue with PO prednisone taper. The patient has an appointment with a new GI doctor from [facility] on , Dr. Alvin Guardado. The patient will also be discharged home on antibiotics. The patient received a dose of IV steroids and [address] Zaman, discontinue the patient's IV steroids, obtain a CBC at 6 PM, and if the patient remains stable and 9 PM he may be discharged. Nursing to call Dr. Zaman this afternoon to update on patient condition. Discharge diagnosis: Cellulitis of the bilateral lower extremities, present on admission, resolving Abdominal pain, related to ulcerative colitis, resolving Bloody stools, related to ulcerative colitis, resolved History of ulcerative colitis, with acute exacerbation, resolving Febrile, present on admission, no signs of sepsis, resolved at time of discharge Leukocytosis, present on admission, likely due to steroid administration and ulcerative colitis, no evidence of sepsis The above impression and plan of care have been discussed and directed by signing physician. Sheila Forde, nurse practitioner, acting as scribe for signing physician. Patient Condition at Discharge: Stable Plan - Discharge Summary New Discharge Prescriptions: New predniSONE 10 mg PO DIRECTED #123 tab Acetaminophen Tab [Tylenol] 650 mg PO Q6HR PRN tab PRN Reason: Mild Pain Or Fever > 100.5 Levofloxacin [Levaquin] 500 mg PO DAILY #7 tab Continue EPINEPHrine (Auto Inject) [Epipen] 0.3 mg IM ONCE PRN PRN Reason: Anaphylaxis Mesalamine [Canasa] 1,000 mg RECTAL HS Mesalamine [Lialda] 2.4 gm PO QAM Discharge Medication List EPINEPHrine (Auto Inject) [Epipen] 0.3 mg IM ONCE PRN 05/23/17 [History] Mesalamine [Canasa] 1,000 mg RECTAL HS 05/23/17 [History] Mesalamine [Lialda] 2.4 gm PO QAM 05/23/17 [History] Acetaminophen Tab [Tylenol] 650 mg PO Q6HR PRN tab 05/26/17 [Rx] Levofloxacin [Levaquin] 500 mg PO DAILY #7 tab 05/26/17 [Rx] predniSONE 10 mg PO DIRECTED #123 tab 05/26/17 [Rx] Follow up Appointment(s)/Referral(s): Marcell Moffett Jr, [Primary Care Provider] - 3 Days Activity/Diet/Wound Care/Special Instructions: Patient to follow up with his GI doctor, Dr. Alvin Guardado this . Patient already has an appointment scheduled. Discharge Disposition: HOME SELF-CARE
[2017-05-26 13:21] LABS: ANA w/Reflex to Titer POSITIVE (NEGATIVE)
[2017-05-26 19:05] LABS: Basophils % (A) 0 %; CH 32.1; CHCM 33.4; Eosinophils % (A) 0 %; HCT 28.6 % (39.0-53.0); HDW 3.63; HGB 9.7 gm/dL (13.0-17.5); Hypochromasia Slight; Luc # (Auto) 0.15; Luc % (Auto) 1; Lymphocytes # (A) 0.8 k/uL (1.0-4.8); Lymphocytes % (A) 4 %; MCH 32.8 pg (25.0-35.0); MCHC 33.9 g/dL (31.0-37.0); MCV 96.8 fL (80.0-100.0); Mean Platelet Volume 6.3; Monocytes # (A) 0.4 k/uL (0-1.0); Monocytes % (A) 2 %; Neutrophils # (A) 18.9 k/uL (1.3-7.7); Neutrophils % (A) 93 %; Poikilocytosis Slight; RBC 2.95 m/uL (4.30-5.90); RDW 13.7 % (11.5-15.5); WBC 20.3 k/uL (3.8-10.6); WBC (Perox) 20.47
--- NOTE | 2017-05-26 20:32 | PN ---
PROGRESS NOTE DATE OF SERVICE: 05/26/2017. REASON FOR FOLLOWUP: 1. Acute exacerbation of ulcerative colitis. 2. Possible right lower extremity cellulitis. INTERVAL HISTORY: The patient is afebrile. He is feeling much better after starting all of his steroids. He is able to walk around without any pain. Denies any chest pain, shortness of breath. No cough. Abdominal pain has improved and no further hematochezia. EXAMINATION: Blood pressure is 103/58 with a pulse of 77, temperature 37.5. He is 95% on room air. General description is a young male lying in bed in no distress. RESPIRATORY SYSTEM: Unlabored breathing. Clear to auscultation. HEART: S1, S2. Regular rate and rhythm. ABDOMEN: Soft. No tenderness. BILATERAL EXTREMITIES: No swelling or tenderness. LAB: Hemoglobin 12.1, white count 15.5 with a BUN of 8, creatinine 0.76. DIAGNOSTIC IMPRESSION AND PLAN: Patient admitted to the hospital with pain, swelling of the legs, also with abdominal pain and hematochezia, appeared to have underlying ulcerative colitis. Likely ulcerative colitis in a patient with inflammatory arthritis, less likely cellulitis. The patient did overall improvement on Zosyn, may be given a short course of oral Augmentin for about a week. . White count is elevated, more likely due to steroid effect, as clinically no evidence of any worsening infection. All this was discussed in detail with the mother. MMODL / IJN: [id number] /
[2017-05-26] MEDS ORDERED: methylPREDNISolone SOD SUCCI 125 MG/2 ML VIAL IV SCH (21:00)
[2017-05-26 21:30] VITALS: BP 116/55; PULSE 74; TEMP 97.8
== END 2017-05-26 22:00 | disposition home or self-care (01) | DRG 386 ==
LOC: EC 15:29 → INTOOBSV 19:13 → OBSVTOIN 19:13 → 3SUR 19:13
PROVIDERS: ADMIT Family Medicine; ATTEND Family Medicine
DX: K51.50 Left sided colitis without complications (principal); L03.115 Cellulitis of right lower limb; L03.116 Cellulitis of left lower limb; K51.90 Ulcerative colitis, unspecified, without complications; T38.0X5A Adverse effect of glucocorticoids and synthetic analogues, initial encounter; Z91.010 Allergy to peanuts; Z88.2 Allergy status to sulfonamides
CPT/HCPCS: 36415; 74177; 80048; 80053; 81003; 82272; 83735; 84550; 85025; 85652; 86001; 86038; 86039; 86140; 86160; 87040; 87045; 87046; 87324; 93970